=== PATIENT | male | born 1950 | race Caucasian/White ===

== ENCOUNTER 2017-11-09 14:05 | Inpatient (IN) | payer MEDICARE ==
[~2017-11-09] VITALS: Ht 188 cm; Wt 68.5 kg
[2017-11-09] MEDS ORDERED: IPRATROPIUM BROM 0.5 MG/2.5ML INH SOL HHN ONE (14:30)
[2017-11-09] MEDS ORDERED: methylPREDNISolone SOD SUCC 125 MG/2 ML VL IV ONE (14:30)
[2017-11-09] MEDS ORDERED: ALBUTEROL SULF 2.5 MG/0.5ML(0.5%) NEB SOLN HHN ONE (14:30)
[2017-11-09 15:08] LABS: Basophils # (auto) 0.1 uL; Eosinophils # (auto) 0 uL; Hemoglobin 14.5 g/dL (13.5-17.5); Lymphocytes # (auto) 0.3 uL; Monocytes # (auto) 0.7 uL
[2017-11-09 15:09] LABS: Basophils % (auto) 0.7 % (0.0-2.0); Hematocrit 42.4 % (41.0-53.0); Lymphocytes % (auto) 4.7 % (10.0-50.0); Mean Corpuscular Hemoglobin 34.4 pg (28.0-32.0); Mean Corpuscular Hgb Conc. 34.3 g/dL (32.0-36.0); Mean Corpuscular Volume 100.4 fL (80.0-100.0); Monocytes % (auto) 10.1 % (0.0-12.0); Neutrophils # (auto) 6.1 uL; Neutrophils % (auto) 84.5 % (37.0-80.0); Platelet Count (auto) 209 10^3/uL (140-450); White Blood Cell 7.2 10^3/uL (4.4-10.8)
[2017-11-09 15:29] LABS: B-Type Natriuretic Peptide 27.2 pg/mL (0-100)
[2017-11-09 15:30] LABS: Temperature: 22.1 C (20.0-25.0)
[2017-11-09 15:31] LABS: Albumin 3.9 g/dL (3.4-5.0); BUN/Creatinine Ratio 11.7; Bilirubin, Total 0.3 mg/dL (0.2-1.0); Calcium 8.4 mg/dL (8.5-10.1); Magnesium 2.2 mg/dL (1.6-2.6); Potassium 3.8 mmol/L (3.5-5.1); Total Protein 7.6 g/dL (6.4-8.2)
[2017-11-09 15:38] LABS: Lactic Acid w/Reflex 2.4 mmol/L (0.4-2.0)
[2017-11-09 15:39] LABS: REFLEX LACTIC ACID YES OR NO YES
[2017-11-09] MEDS ORDERED: cefTRIAXone 1GM/10ml IVPUSH 10 ML IV ONE (16:00)
[2017-11-09] MEDS ORDERED: BUPR200T PO (16:14)
[2017-11-09] MEDS ORDERED: LORazepam 0.5 MG TAB PO PRN (16:15)
[2017-11-09] MEDS ORDERED: NITROGLYCERIN 0.4 MG SL TAB SL PRN (16:15)
[2017-11-09] MEDS ORDERED: LACTULOSE 20Gm/30ML SOLN PO PRN (16:15)
[2017-11-09] MEDS ORDERED: PROMETHAZINE HCL 25 MG/ML 1ML IV PRN (16:15)
[2017-11-09] MEDS ORDERED: HYDROcodone-ACET 5/325MG TAB PO PRN (16:15)
[2017-11-09] MEDS ORDERED: ALBUTEROL SULF 2.5 MG/0.5ML(0.5%) NEB SOLN NEB PRN (16:15)
[2017-11-09] MEDS ORDERED: MORPHINE SULF INJ 2 MG/ML SYRINGE 1ML IV PRN ×2 (16:15)
[2017-11-09] MEDS ORDERED: OSELTAMIVIR 75 MG CAP PO ONE (16:15)
[2017-11-09] MEDS ORDERED: ACETAMINOPHEN 500 MG TAB PO PRN (16:15)
[2017-11-09] MEDS ORDERED: TEMAZEPAM 15 MG CAP PO PRN (16:15)
[2017-11-09] MEDS: SODIUM CHLORIDE 0.9% 1,000 ML IV SCH (16:30)
[2017-11-09] MEDS: AZITHROMYCIN 500MG/ 250ML 250 ML IV SCH (16:36)
[2017-11-09] MEDS: ENOXAPARIN SOD 40 MG/0.4 ML SYRINGE SC SCH (16:36)
[2017-11-09] MEDS: NICOTINE 21MG/24 HR TOPICAL PATCH TD SCH (16:40)
[2017-11-09 17:27] VITALS: BP 97/68
[2017-11-09 18:32] VITALS: BP 111/47
[2017-11-09] MEDS: ALBUTEROL SULF 2.5 MG/0.5ML(0.5%) NEB SOLN NEB SCH (18:43)
[2017-11-09] MEDS: IPRATROPIUM BROM 0.5 MG/2.5ML INH SOL NEB SCH (18:43)
[2017-11-09] MEDS: buPROPion HCL 75 MG TAB PO SCH (18:45)
[2017-11-09] MEDS ORDERED: LORA-655 PO (18:50)
[2017-11-09 20:11] LABS: Cellular Cast FEW /hpf (0); Urine Bilirubin Negative (Negative); Urine Blood 2+ /uL (Negative); Urine Color Yellow (Yellow); Urine Glucose Normal (Normal); Urine Ketone TRACE (Negative); Urine Mucus FEW (None Seen); Urine Nitrite Negative (Negative); Urine RBC 2 /hpf (0 - 3); Urine Urobilinogen Normal (Negative); Urine pH 5.5 (5.0-8.0)
[2017-11-09 22:00] VITALS: BP 103/48
[2017-11-09] MEDS: OSELTAMIVIR 75 MG CAP PO SCH (22:00)
[2017-11-10] MEDS: methylPREDNISolone SOD SUCC 40 MG/ML VL IV SCH ×4 (00:09→18:46)
[2017-11-10] MEDS: SODIUM CHLORIDE 0.9% 1,000 ML IV SCH ×2 (05:56→18:46)
[2017-11-10 06:27] VITALS: BP 95/43
[2017-11-10] MEDS: buPROPion HCL 75 MG TAB PO SCH ×2 (06:40→18:46)
[2017-11-10] MEDS: IPRATROPIUM BROM 0.5 MG/2.5ML INH SOL NEB SCH ×5 (07:00→23:10)
[2017-11-10] MEDS: ALBUTEROL SULF 2.5 MG/0.5ML(0.5%) NEB SOLN NEB SCH ×5 (07:00→23:10)
[2017-11-10 08:02] VITALS: BP 86/41
[2017-11-10] MEDS: AZITHROMYCIN 500MG/ 250ML 250 ML IV SCH (09:51)
[2017-11-10] MEDS: LORazepam 0.5 MG TAB PO PRN ×2 (09:51→16:58)
[2017-11-10] MEDS: OSELTAMIVIR 75 MG CAP PO SCH ×2 (09:52→22:06)
[2017-11-10] MEDS: NICOTINE 21MG/24 HR TOPICAL PATCH TD SCH (09:54)
[2017-11-10] MEDS: ENOXAPARIN SOD 40 MG/0.4 ML SYRINGE SC SCH (09:55)
[2017-11-10 13:00] VITALS: BP 103/63
[2017-11-10] MEDS ORDERED: FAMOTIDINE 20 MG TAB PO ONE (14:45)
[2017-11-10 17:00] VITALS: BP 165/60
[2017-11-10 22:05] VITALS: BP 132/73
[2017-11-11] MEDS: methylPREDNISolone SOD SUCC 40 MG/ML VL IV SCH ×4 (00:07→22:00)
[2017-11-11] MEDS: LORazepam 0.5 MG TAB PO PRN ×3 (00:08→22:38)
[2017-11-11] MEDS: ALBUTEROL SULF 2.5 MG/0.5ML(0.5%) NEB SOLN NEB SCH ×6 (02:50→22:28)
[2017-11-11] MEDS: IPRATROPIUM BROM 0.5 MG/2.5ML INH SOL NEB SCH ×6 (02:50→22:28)
[2017-11-11 04:42] VITALS: BP 124/64
[2017-11-11 06:04] LABS: Basophils # (auto) 0 uL; Eosinophils # (auto) 0 uL; Mean Corpuscular Volume 101.1 fL (80.0-100.0); Monocytes # (auto) 0.6 uL; Neutrophils # (auto) 14.4 uL
[2017-11-11 06:05] LABS: Hematocrit 42.9 % (41.0-53.0); Hemoglobin 14.4 g/dL (13.5-17.5); Lymphocytes # (auto) 0.5 uL; Mean Corpuscular Hemoglobin 33.9 pg (28.0-32.0); Mean Corpuscular Hgb Conc. 33.6 g/dL (32.0-36.0); Mean Platelet Volume 7.3 fL (6.9-10.8); Monocytes % (auto) 3.9 % (0.0-12.0); Neutrophils % (auto) 93.1 % (37.0-80.0); Platelet Count (auto) 179 10^3/uL (140-450); Red Cell Distribution Width 12.7 % (11.8-14.3); White Blood Cell 15.5 10^3/uL (4.4-10.8)
[2017-11-11 06:32] LABS: BUN/Creatinine Ratio 30.5; Calcium 8.3 mg/dL (8.5-10.1); Potassium 4.7 mmol/L (3.5-5.1)
[2017-11-11] MEDS: buPROPion HCL 75 MG TAB PO SCH ×2 (07:19→18:49)
[2017-11-11] MEDS: SODIUM CHLORIDE 0.9% 1,000 ML IV SCH ×2 (08:02→14:30)
[2017-11-11 09:00] VITALS: BP 136/60
[2017-11-11] MEDS: FAMOTIDINE 20 MG TAB PO SCH (10:42)
[2017-11-11] MEDS: AZITHROMYCIN 500MG/ 250ML 250 ML IV SCH (10:42)
[2017-11-11] MEDS: ENOXAPARIN SOD 40 MG/0.4 ML SYRINGE SC SCH (10:43)
[2017-11-11] MEDS: NICOTINE 21MG/24 HR TOPICAL PATCH TD SCH (10:43)
[2017-11-11] MEDS: OSELTAMIVIR 75 MG CAP PO SCH ×2 (10:43→22:00)
[2017-11-11 13:00] VITALS: BP 158/74
[2017-11-11 13:30] VITALS: BP 152/63
[2017-11-11 17:00] VITALS: BP 102/60
[2017-11-11 22:00] VITALS: BP 93/50
[2017-11-12] MEDS: IPRATROPIUM BROM 0.5 MG/2.5ML INH SOL NEB SCH ×3 (02:01→11:13)
[2017-11-12] MEDS: ALBUTEROL SULF 2.5 MG/0.5ML(0.5%) NEB SOLN NEB SCH ×3 (02:01→11:13)
[2017-11-12 05:00] VITALS: BP 106/87
[2017-11-12 05:54] LABS: Basophils # (auto) 0 uL; Basophils % (auto) 0.1 % (0.0-2.0); Eosinophils # (auto) 0 uL; Hematocrit 38.8 % (41.0-53.0); Hemoglobin 13.2 g/dL (13.5-17.5); Lymphocytes # (auto) 0.3 uL; Lymphocytes % (auto) 2.2 % (10.0-50.0); Mean Corpuscular Hemoglobin 33.9 pg (28.0-32.0); Mean Corpuscular Hgb Conc. 33.9 g/dL (32.0-36.0); Mean Corpuscular Volume 99.9 fL (80.0-100.0); Mean Platelet Volume 7.3 fL (6.9-10.8); Monocytes # (auto) 0.8 uL; Monocytes % (auto) 5.1 % (0.0-12.0); Neutrophils # (auto) 13.6 uL; Neutrophils % (auto) 92.6 % (37.0-80.0); Platelet Count (auto) 175 10^3/uL (140-450); Red Cell Distribution Width 12.6 % (11.8-14.3); White Blood Cell 14.7 10^3/uL (4.4-10.8)
[2017-11-12 06:17] LABS: Potassium 3.9 mmol/L (3.5-5.1)
[2017-11-12 06:29] LABS: BUN/Creatinine Ratio 28.4; Calcium 8.4 mg/dL (8.5-10.1)
[2017-11-12] MEDS: buPROPion HCL 75 MG TAB PO SCH (06:57)
[2017-11-12] MEDS: SODIUM CHLORIDE 0.9% 1,000 ML IV SCH (07:10)
[2017-11-12 08:16] LABS: Allen Test No; Base Excess 3.3 mmol/L (-2.0-2.0); Blood COHb 0.3 % (0.5-1.5); Blood MetHb 0.4 % (0.0-1.5); HCO3 26.3 mmol/L (22-26.0); HHb 9.9 % (0.0-5.0); MODE ROOM AIR; O2Hb 89.4 % (94.0-97.0); PCO2 35.2 mmHg (35.0-45.0); PCO2(T) 35.2 mmHg (35.0-45.0); PO2 58.6 mmHg (80.0-100.0); PO2(T) 58.6 mmHg (80.0-100.0); Room 0291T; Sample Type Arterial; pH 7.492 (7.350-7.450)
[2017-11-12 09:00] VITALS: BP 109/73
[2017-11-12] MEDS: OSELTAMIVIR 75 MG CAP PO SCH (09:54)
[2017-11-12] MEDS: methylPREDNISolone SOD SUCC 40 MG/ML VL IV SCH (09:54)
[2017-11-12] MEDS: FAMOTIDINE 20 MG TAB PO SCH (09:54)
[2017-11-12] MEDS: AZITHROMYCIN 500MG/ 250ML 250 ML IV SCH (09:54)
[2017-11-12] MEDS: ENOXAPARIN SOD 40 MG/0.4 ML SYRINGE SC SCH (09:55)
[2017-11-12] MEDS: NICOTINE 21MG/24 HR TOPICAL PATCH TD SCH (09:56)
[2017-11-12 12:54] VITALS: BP 109/73
[2017-11-12] MEDS ORDERED: LORA-655 PO (12:56)
[2017-11-12] MEDS ORDERED: TAMIFLU PO (12:56)
[2017-11-12] MEDS ORDERED: ALBUAER3 IN (12:58)
[2017-11-12 14:02] VITALS: BP 109/73
== END 2017-11-12 18:56 | disposition home or self-care (01) | DRG 193 ==
LOC: ER 14:05 → TELE 14:06 → TELE-WESTW 17:42
PROVIDERS: ADMIT Internal Medicine; ATTEND Internal Medicine
DX: J10.08 Influenza due to other identified influenza virus with other specified pneumonia (principal); J96.01 Acute respiratory failure with hypoxia; Z88.8 Allergy status to other drugs, medicaments and biological substances; J44.0 Chronic obstructive pulmonary disease with (acute) lower respiratory infection; J44.1 Chronic obstructive pulmonary disease with (acute) exacerbation; F17.210 Nicotine dependence, cigarettes, uncomplicated; Z82.49 Family history of ischemic heart disease and other diseases of the circulatory system; F41.9 Anxiety disorder, unspecified
CPT/HCPCS: 36415; 36600; 71010; 71020; 80048; 80053; 81001; 82805; 83605; 83735; 83880; 84484; 85025; 87040; 87070; 87205; 87400; 94640; 94644; 94761; 96365; 96368; 96372

== ENCOUNTER 2018-08-24 10:33 | Inpatient (IN) | payer MEDICARE ==
[~2018-08-24] VITALS: Ht 188 cm; Wt 77.4 kg
[~2018-08-24 10:33] MED LIST: ALBUAER3 IN; BUPR200T PO; LORA-655 PO; TAMIFLU PO
[2018-08-24] MEDS ORDERED: SODIUM CHLORIDE 0.9% 1,000 ML IV ONE (10:54)
[2018-08-24] MEDS ORDERED: ONDANSETRON HCL 4 MG/2 ML VIAL IV ONE (11:00)
[2018-08-24 11:32] LABS: Basophils # (auto) 0.1 uL; Basophils % (auto) 1.5 % (0.0-2.0); Eosinophils # (auto) 0.5 uL; Eosinophils % (auto) 5.7 % (0.0-7.0); Hematocrit 40.7 % (41.0-53.0); Hemoglobin 14.1 g/dL (13.5-17.5); Lymphocytes # (auto) 3.7 uL; Lymphocytes % (auto) 44.9 % (10.0-50.0); Mean Corpuscular Hgb Conc. 34.6 g/dL (32.0-36.0); Mean Corpuscular Volume 95.5 fL (80.0-100.0); Monocytes # (auto) 0.6 uL; Monocytes % (auto) 7.6 % (0.0-12.0); Neutrophils # (auto) 3.3 uL; Neutrophils % (auto) 40.3 % (37.0-80.0); Platelet Count (auto) 262 10^3/uL (140-450); Red Blood Cells 4.26 10^6/uL (4.5-5.90); Red Cell Distribution Width 16.5 % (11.8-14.3); White Blood Cell 8.2 10^3/uL (4.4-10.8)
[2018-08-24 11:36] LABS: Amylase 32 U/L (25-115); Lipase 168 U/L (73-393)
[2018-08-24 11:41] LABS: Albumin 3.1 g/dL (3.4-5.0); BUN/Creatinine Ratio 10.3; Bilirubin, Total 18.8 mg/dL (0.2-1.0); Calcium 8.7 mg/dL (8.5-10.1)
[2018-08-24 11:44] LABS: INR 1.45 (0.9-1.15); Partial Thromboplastin Time 31.5 sec (23.78-33.04); Prothrombin Time 15.2 sec (9.27-12.13)
[2018-08-24] MEDS ORDERED: IOHEXOL 300 MG/ML 100ML BOTTLE IJ ONE (12:17)
[2018-08-24] MEDS ORDERED: MORPHINE SULFATE 4 MG/ML SYR/VIAL IV PRN (15:15)
[2018-08-24] MEDS ORDERED: HYDROcodone-ACET 5/325MG TAB PO PRN (15:15)
[2018-08-24] MEDS ORDERED: PANTOPRAZOLE 40 MG/10 ML VIAL IV ONE (15:15)
[2018-08-24] MEDS ORDERED: ONDANSETRON HCL 4 MG/2 ML VIAL IV PRN (15:15)
[2018-08-24] MEDS: SOD CHL 0.9%/ KCL 20MEQ 1,000 ML IV SCH (15:51)
[2018-08-24] MEDS ORDERED: FLUT100I IN (19:09)
[2018-08-24] MEDS ORDERED: VENL37.56 PO (19:09)
[2018-08-24] MEDS ORDERED: LATA0.0015 RIGHTEYE (19:09)
[2018-08-24] MEDS ORDERED: TOBR0.3S37 OP (19:09)
[2018-08-24] MEDS ORDERED: MOXI0.5D OP (19:09)
[2018-08-24] MEDS ORDERED: ATRO1SOL15 OP (19:09)
[2018-08-24] MEDS ORDERED: DORZ2SOL18 RIGHTEYE (19:09)
[2018-08-24] MEDS ORDERED: PNEUMOCOCCAL VACC POLYS 25 MCG/0.5 ML VIAL IM ONE (19:15)
[2018-08-24] MEDS ORDERED: INFLUENZA QUAD 2018-2019 0.5 ML SYRG IM ONE (19:15)
[2018-08-24 22:00] VITALS: BP 125/67
[2018-08-25 05:00] VITALS: BP 118/56
[2018-08-25] MEDS: SOD CHL 0.9%/ KCL 20MEQ 1,000 ML IV SCH ×2 (05:28→18:08)
[2018-08-25 06:26] LABS: Hematocrit 36.2 % (41.0-53.0); Red Blood Cells 3.79 10^6/uL (4.5-5.90)
[2018-08-25 06:28] LABS: Hemoglobin 12.8 g/dL (13.5-17.5); Mean Corpuscular Hemoglobin 33.9 pg (28.0-32.0); Mean Corpuscular Hgb Conc. 35.5 g/dL (32.0-36.0); Mean Corpuscular Volume 95.3 fL (80.0-100.0); Platelet Count (auto) 224 10^3/uL (140-450); Red Cell Distribution Width 16.2 % (11.8-14.3)
[2018-08-25 06:31] LABS: Band Neutrophils % (manual) 0; Basophils % (manual) 0 (0.0-2.0); Blast Cells 0; Metamyelocytes % 0; Myelocytes % 0; Promyelocytes % 0; Reactive Lymphocytes 0
[2018-08-25 06:44] LABS: Albumin 2.6 g/dL (3.4-5.0); BUN/Creatinine Ratio 12.9; Bilirubin, Total 15.6 mg/dL (0.2-1.0); Calcium 8.5 mg/dL (8.5-10.1); Potassium 3.2 mmol/L (3.5-5.1); Total Protein 5.8 g/dL (6.4-8.2)
[2018-08-25 07:51] LABS: Eosinophils % (manual) 12 (0-7); Lymphocytes % (manual) 11 (10.0-50.0); Monocytes % (manual) 11 (0-12)
[2018-08-25] MEDS: PANTOPRAZOLE 40 MG/10 ML VIAL IV SCH (09:43)
[2018-08-25 09:58] VITALS: BP 128/69
[2018-08-25] MEDS ORDERED: PNEUMOCOCCAL VACC POLYS 25 MCG/0.5 ML VIAL IM ONE (10:30)
[2018-08-25] MEDS ORDERED: POTASSIUM CHL 20 Meq TABLET PO ONE (11:30)
[2018-08-25] MEDS ORDERED: prednisoLONE ACETATE 1% OPTH SUSP 5ML LEFTEYE SCH (12:30)
[2018-08-25 12:55] VITALS: BP 139/79
[2018-08-25] MEDS: DORZOLAMIDE HCL 2% OPTH(EYE) SOL 10ML RIGHTEYE SCH ×2 (14:05→21:42)
[2018-08-25 17:16] VITALS: BP 135/70
[2018-08-25] MEDS: PREDNISOLONE OPTH LEFTEYE SCH ×2 (18:07→21:56)
[2018-08-25] MEDS ORDERED: BREO ELIPTA EACHNOSTRI PRN (18:30)
[2018-08-25] MEDS ORDERED: BREO ELLIPTA PRN (19:15)
[2018-08-25] MEDS: ATROPINE SULFATE 1% 2ml EACHEYE SCH (21:44)
[2018-08-25 22:00] VITALS: BP 129/63
[2018-08-25] MEDS ORDERED: [UNRECOGNIZED DRUG - OTHER] LEFTEYE SCH (22:00)
[2018-08-25] MEDS ORDERED: TOBRAMYCIN SULF 0.3% OPTH(EYE) OINT 3.5GM LEFTEYE SCH (22:00)
[2018-08-25] MEDS ORDERED: TOBRAMYCIN SULF 0.3% OPTH(EYE) SOLN 5ML LEFTEYE SCH (22:00)
[2018-08-26 05:37] VITALS: BP 123/57
[2018-08-26] MEDS: DORZOLAMIDE HCL 2% OPTH(EYE) SOL 10ML RIGHTEYE SCH (06:00)
[2018-08-26] MEDS: PREDNISOLONE OPTH LEFTEYE SCH (06:00)
[2018-08-26] MEDS: SOD CHL 0.9%/ KCL 20MEQ 1,000 ML IV SCH (06:31)
[2018-08-26 06:37] LABS: Calcium 7.8 mg/dL (8.5-10.1); Potassium 3.5 mmol/L (3.5-5.1)
[2018-08-26 06:43] LABS: Albumin 2.3 g/dL (3.4-5.0); Total Protein 5.6 g/dL (6.4-8.2)
[2018-08-26 06:47] LABS: Bilirubin, Total 15.4 mg/dL (0.2-1.0)
[2018-08-26 09:00] VITALS: BP 114/56
[2018-08-26] MEDS: ATROPINE SULFATE 1% 2ml EACHEYE SCH (09:51)
[2018-08-26] MEDS: PANTOPRAZOLE 40 MG/10 ML VIAL IV SCH (09:52)
[2018-08-26] MEDS ORDERED: LORazepam 0.5 MG TAB PO ONE (11:00)
[2018-08-26] MEDS ORDERED: VENLAFAXINE HCL 37.5MG TABLET PO ONE (12:15)
[2018-08-26 12:22] VITALS: BP 114/56
[2018-08-26] MEDS ORDERED: PREDNISOLONE OPTH LEFTEYE SCH (14:00)
[2018-08-27] MEDS ORDERED: VENLAFAXINE HCL 37.5MG TABLET PO SCH (10:00)
== END 2018-08-26 13:40 | disposition short-term general hospital (02) | DRG 441 ==
LOC: ER 10:33 → OVERFLOW 10:34 → EAST 18:31
PROVIDERS: ADMIT Internal Medicine; ATTEND Internal Medicine
DX: K72.90 Hepatic failure, unspecified without coma (principal); K83.1 Obstruction of bile duct; N17.0 Acute kidney failure with tubular necrosis; C25.9 Malignant neoplasm of pancreas, unspecified; E87.6 Hypokalemia; F32.9 Major depressive disorder, single episode, unspecified; R74.8 Abnormal levels of other serum enzymes; F41.9 Anxiety disorder, unspecified; H40.9 Unspecified glaucoma; E86.0 Dehydration; J44.9 Chronic obstructive pulmonary disease, unspecified; Z82.49 Family history of ischemic heart disease and other diseases of the circulatory system; Z87.891 Personal history of nicotine dependence; Z88.8 Allergy status to other drugs, medicaments and biological substances; Z79.899 Other long term (current) drug therapy; Z23 Encounter for immunization
CPT/HCPCS: 36415; 71045; 74177; 76705; 80053; 82150; 83690; 85007; 85025; 85027; 85610; 85730; 86301; 90674; 93005; 94761; 96361; 96374; 96375; C9113; J2405

== ENCOUNTER → 2018-12-01 | Outpatient (CLI) | payer MEDICARE ==
[~2018-12-01] MED LIST changes: -ALBUAER3 IN; +ATRO1SOL15 OP; -BUPR200T PO; +DORZ2SOL18 RIGHTEYE; +FLUT100I IN; +IOHEXOL 300 MG/ML 100ML BOTTLE IJ ONE; +MOXI0.5D OP; -TAMIFLU PO; +TOBR0.3S37 OP; +VENL37.56 PO
== END | disposition home or self-care (01) ==
LOC: CT 10:33
PROVIDERS: ATTEND Internal Medicine
DX: C25.0 Malignant neoplasm of head of pancreas (principal); K57.30 Diverticulosis of large intestine without perforation or abscess without bleeding; I70.0 Atherosclerosis of aorta; K44.9 Diaphragmatic hernia without obstruction or gangrene
CPT/HCPCS: 74177; Q9967